=== PATIENT | female | born 1995 | race Hispanic/Latino ===

== ENCOUNTER 2024-02-11 11:10 | Emergency (ER) | payer SELFPAY ==
[2024-02-11 11:34] VITALS: BP 133/80; PULSE 96; RESP 16; TEMP 36.7; O2SAT 98
[2024-02-11] MEDS: ONDANSETRON INJ 4 MG/2 ML VIAL IV PUSH (12:08)
[2024-02-11] MEDS: methylPREDNISolone SOD SUCC 125 MG VIAL IV PUSH (12:09)
[2024-02-11] MEDS: diphenhydrAMINE HCl INJ 50 MG/ML VIAL IV PUSH (12:11)
[2024-02-11] MEDS: FAMOTIDINE 20 MG/2 ML VIAL IV PUSH (12:13)
--- NOTE | 2024-02-11 12:35 | ED.SKABFB ---
HPI - Skin/Abscess/Foreign Bdy General Chief complaint: Skin/Abscess/Foreign Body Stated complaint: rash, n/v Time Seen by Provider: 02/11/24 11:37 Source: patient Mode of arrival: ambulatory Limitations: no limitations and language barrier History of Present Illness HPI narrative: Patient is a 29-year-old female who presents the ED with report of a rash and itching. Patient is primarily Amharic-speaking. [employer] official court interpreter was utilized for assistance with translation. Patient reports she ate chicken yesterday that had been sitting out for a while. She began having diffuse hives, rash, itching afterwards. She noted having some difficulty breathing yesterday as well as nausea and vomiting, which persisted throughout the night. Patient denies any difficulty breathing today, but complains of persistent itching and nausea. She has not tried anything for her symptoms. Denies sensation of throat closing or swelling currently. Denies any other new medications, foods, detergents, lotions, soaps. Related Data Allergies Allergy/AdvReac Type Severity Reaction Status Date / Time Penicillins Allergy Unknown Verified 02/11/24 11:48 Review of Systems Review of Systems: All systems reviewed & are unremarkable except as noted in HPI. All systems reviewed & are unremarkable except as noted in HPI and below Exam Narrative: GENERAL: Mildly uncomfortable appearing, obese with BMI of 32.7, non-toxic, in no acute distress. HEAD: Normocephalic, atraumatic. ENT: No oral mucosal swelling. No swelling of lips or tongue. No drooling. No stridor or trismus. RESPIRATORY: Airway patent, respirations nonlabored. Clear to auscultation bilaterally, no rales, rhonchi, wheezing. No stridor or focal lung sounds. Maintaining secretions. CARDIOVASCULAR: Regular rate and rhythm without murmurs, rubs, or gallops. MUSCULOSKELETAL: Moves all extremities. No gross deformities. SKIN: Warm, dry, normal color. Diffuse urticaria/welts throughout trunk, back, extremities, upper neck, forehead. NEURO: A&O X3. Speech clear. Cranial nerves II-XII grossly intact. No ataxic movements. PSYCHIATRIC: Appropriate mood and affect. Normal interaction. Course Vital Signs Vital signs: Vital Signs Temperature 98.1 F 02/11/24 11:34 Pulse Rate 96 02/11/24 11:34 Respiratory Rate 16 02/11/24 11:34 Blood Pressure 133/80 02/11/24 11:34 Pulse Oximetry 98 02/11/24 11:34 Oxygen Delivery Room Air 02/11/24 11:34 Temperature 98.1 F 02/11/24 11:34 Pulse Rate 96 02/11/24 11:34 Respiratory Rate 16 02/11/24 11:34 Blood Pressure 133/80 02/11/24 11:34 Pulse Oximetry 98 02/11/24 11:34 Oxygen Delivery Room Air 02/11/24 11:34 MDM - Skin/Abscess/Foreign Bdy MDM Narrative Medical decision making narrative: patient presented to ED with allergic reaction, reportedly from eating left out chicken last night, also reporting nausea. Vitals are stable upon arrival. No signs of anaphylaxis or airway compromise at this time. No respiratory distress. Patient maintaining secretions. No stridor. Exam with diffuse urticaria to back /trunk/extremities. Patient given Solu-Medrol, Pepcid, Benadryl, zofran in the ED. On re-evaluation, symptoms are completely resolved. Patient resting comfortably. Urticaria is resolved. Patient reports itching is much better. Feel she is safe for discharge home at this time. Will discharge on Medrol Dosepak will also prescribe Zofran for home use. Given strict return precautions, discussed signs and symptoms of anaphylaxis. Patient in agreement with plan and feels comfortable w/ discharge home. Discharged in stable condition. Medical Records Attestation: I reviewed the patient's medical records. Discharge Plan Discharge Clinical Impression: Urticaria Allergic reaction Qualifiers: Encounter type: initial encounter Qualified Code(s): T78.40XA - Allergy, unspecified, initial encounter Patient Disposition: Home, Self-Care Condition: Stable Instructions: Antibiotic Form, Urticaria (ED), General Allergic Reaction (ED) Additional Instructions: Take steroids as prescribed over the next several days. Continue Benadryl as needed for itching. Continue Zofran as needed for further nausea. Stay well hydrated. Get plenty of rest. Follow-up with your primary care doctor for further evaluation. Return to the ED if you experience worsening or severe symptoms, difficulty breathing or swelling, sensation of throat swelling or closing, unable to keep down food or drink, or any other symptoms of concern. Prescriptions: New methylprednisolone [Medrol (Tee)] 4 mg tablets,dose pack See Rx Instructions PO .COMPLEX Qty: 21 0RF Rx Instructions: orally per package directions ondansetron 4 mg tablet,disintegrating 4 mg PO Q8H PRN (Reason: nausea and vomiting) Qty: 15 0RF Follow-up/Referrals: Kathryn,SHADI Conde [Primary Care Provider] - Time of Disposition: 14:00
[2024-02-11 14:23] VITALS: BP 128/76; PULSE 76; RESP 18; TEMP 36.8; O2SAT 98
== END 2024-02-11 14:24 | disposition home or self-care (01) ==
PROVIDERS: Emergency Provider Physician Assistant; PCP Physician Assistant
DX: L50.9 Urticaria, unspecified (principal)
CPT/HCPCS: 96374; 96375; 99284; J1200; J2405; J2919

== ENCOUNTER 2024-02-12 02:01 | Emergency (ER) | payer SELFPAY ==
[2024-02-12 02:38] VITALS: BP 134/74; PULSE 86; RESP 18; TEMP 37; O2SAT 100
--- NOTE | 2024-02-12 02:43 | ED_ITS ---
HPI - Skin/Abscess/Foreign Bdy General Chief complaint: Allergic Reaction Stated complaint: rash Time Seen by Provider: 02/12/24 02:33 History of Present Illness HPI narrative: 29-year-old [place]-speaking patient presenting to the emergency depart with a chief complaint of rash, difficulty breathing, lip swelling. Patient is primarily [place] Korean-speaking only and we have presently no access to interpretive services secondary to ID complication. Translation was conducted through [employer] staff who is fluent in [place]. Patient states that she was seen about 12 hours prior with a suspected allergic reaction to something she ate. She had diffuse hives and urticaria at that time. Was treated with a combination medications including Solu-Medrol, Pepcid, Benadryl and sent home after relief of her symptoms. She went home in her normal state of health and then had a recurrence of her rash and development of shortness of breath and lip swelling. This occurred just prior to arrival. Was sent home with a Medrol Dosepak and Zofran earlier today. She denies any abdominal pain, nausea or vomiting presently. No fever or chills. No new detergents, animals, exposures in the household. No new foods other than the cheek and she ate earlier today which she feels was . Related Data Allergies Allergy/AdvReac Type Severity Reaction Status Date / Time Penicillins Allergy Unknown Verified 02/12/24 02:01 Review of Systems Review of Systems: As reviewed above in HPI Exam Narrative: GENERAL: [Well-appearing, well-nourished, and in no acute distress.] HEAD: [Normocephalic, atraumatic.] EYES: [PERRLA and EOMI.] ENT: Nares clear, no rhinorrhea or epistaxis. Mucous membranes moist. Minor anterior lip swelling on the top lip, no uvular edema, no posterior pharyngeal edema, no brawny neck edema. Full range of motion of the jaw, no trismus NECK: Supple. CHEST: Some scattered wheezing appreciated in the bilateral bases but good air entry. No rhonchi. No accessory muscle use HEART: [Regular rate and rhythm]. No murmur heard. [Normal peripheral pulses.] ABDOMEN: [Soft, nondistended], [nontender], [No rigidity or guarding] EXTREMITIES: Normal range of motion. [No edema.] SKIN: Diffuse urticaria noted throughout the extremities and back, mostly localized to the right proximal arm, inner thighs bilaterally, neck and hairline NEURO: [No focal deficits]. Alert and oriented [x3.] PSYCH: [Normal mood and affect.] Course Vital Signs Vital signs: Vital Signs Temperature 37.0 C 02/12/24 02:38 Pulse Rate 86 02/12/24 02:38 Respiratory Rate 18 02/12/24 02:38 Blood Pressure 134/74 02/12/24 02:38 Pulse Oximetry 100 02/12/24 02:38 Oxygen Delivery Room Air 02/12/24 02:38 Temperature 37.0 C 02/12/24 02:38 Pulse Rate 88 02/12/24 05:12 Respiratory Rate 18 02/12/24 05:12 Blood Pressure 129/71 02/12/24 05:12 Pulse Oximetry 100 02/12/24 05:12 Oxygen Delivery Room Air 02/12/24 04:36 MDM - Skin/Abscess/Foreign Bdy MDM Narrative Medical decision making narrative: 29-year-old female presenting for repeat evaluation after being treated for an allergic reaction about 14 hours prior in the same emergency department. During previous assessment and treatment she was given Solu-Medrol Pepcid Benadryl and Zofran with resolution of her symptoms. She was discharged home in good health. She returns present with repeat rash and new symptoms such as difficulty breathing and lip swelling. Denies any repeat exposure to the potential allergen from earlier. No new detergents or pets or any other potential exposures according to the patient with the family present at bedside. She does not appear in any distress and has normal vital signs without any hypoxia, fever or blood pressure concerns. No tachycardia. She does have some scattered wheezing and does have urticaria in her extremities, neck and hairline. Minor anterior lip swelling but no posterior oropharyngeal swelling or tongue base swelling. Patient will be treated for anaphylaxis and potential rebound allergic reaction. Or will require epinephrine injection at this time given multi organ involvement. She was given intramuscular epinephrine and IV was established with repeat dose of Solu-Medrol Pepcid Benadryl and a fluid bolus. Laboratory studies were obtained. Patient will be observed for several hours here in the emergency department and final disposition will be made based on patient's response to treatment. Patient was re-evaluated frequently here in the emergency department. She had resolution of her lip swelling and difficulty in breathing and was no longer wheezing. She still had urticarial rash so she was given additional diphenhydramine as well as hydrocortisone cream which resolved this. She was observed for numerous hours here in the emergency depart with any recurrence for symptoms. I discussed this with the family members under plan of care going forward that she will be prescribed Pepcid and Benadryl as well as hydrocortisone cream for the continued rash. If she has any recurrence of the difficulty in breathing or lip swelling that she should return to the ER but given that she has not had any deterioration or return if her symptoms I believe is stable for discharge home and family was agreeable at this time. Medical Records Attestation: I reviewed the patient's medical records. Lab Data Attestation: I reviewed the patient's lab results. Lab results narrative: Leukocytosis of 14.2 but she has received 2 doses of steroids this is likely reactive and not indicative of acute infectious process. No anemia. Normal electrolytes normal hepatic and renal function panel. Negative test. 02/12/24 03:02 02/12/24 03:02 Labs: Lab Results 02/12/24 Range/Units 03:02 WBC 14.2 H (4.5-10.0) K/mm3 RBC 4.48 (4.2-5.4) M/mm3 Hgb 11.7 L (12.0-15.0) g/dL Hct 36.0 L (37.0-47.0) % MCV 80.4 (80-100) fl MCH 26.1 (26-34) pg MCHC 32.5 (32-36) g/dl RDW 14.4 (11.5-14.5) % Plt Count 404 H (150-375) k/mm3 MPV 10.0 (7.4-10.4) fl Immature Gran % (Auto) 0.6 H (0-0.5) % Neut % (Auto) 90.6 H (45.5-73.1) % Lymph % (Auto) 7.2 L (18.3-44.2) % Weber % (Auto) 1.5 L (2.6-8.5) % Eos % (Auto) 0.0 (0-4.4) % Baso % (Auto) 0.1 L (0.2-1.2) % Lymph # (Auto) 1.03 (0.9-3.2) K/mm3 Weber # (Auto) 0.2 (0.1-0.6) K/mm3 Eos # (Auto) 0.0 (0-0.3) K/mm3 Baso # (Auto) 0.0 (0.0-0.1) K/mm3 Abs Immat Gran (auto) 0.09 H (0.00-0.031) K/mm3 Absolute Neuts (auto) 12.9 H (1.3-6.7) K/mm3 Absolute Nucleated RBC 0.000 (0.0-0.012) K/mm3 Nucleated RBC % 0.0 (0.0-0.2) % Platelet Estimate Increased (Adequate) Hypochromasia 1+ Anisocytosis 1+ Schistocytes None seen Sodium 139 (137-145) mmol/L Potassium 3.9 (3.4-5.0) mmol/L Chloride 104 (98-107) mmol/L Carbon Dioxide 24 (22-30) mmol/L Anion Gap 11 (4-12) mmol/L BUN 6 L (7-17) mg/dL Creatinine 0.50 L (0.7-1.0) mg/dL Estim Creat Clear Calc 130 ml/min Estimated GFR > 60 (59 - ) Glucose 171 H (65-110) mg/dL Calcium 9.8 (8.4-10.2) mg/dL Total Bilirubin 0.5 (0.2-1.3) mg/dL AST 26 (14-36) U/L ALT 26 (6-35) U/L Alkaline Phosphatase 83 (38-126) U/L Total Protein 9.0 H (6.3-8.2) g/dL Albumin 4.8 (3.5-5.1) g/dL Beta HCG, Quant < 2.39 mIU/ML Discharge Plan Discharge Clinical Impression: Anaphylaxis, Allergic reaction, Urticaria Patient Disposition: Home, Self-Care Condition: Stable Instructions: Antibiotic Form, Epinephrine (By injection), Urticaria (ED), Anaphylaxis (ED), Allergies (ED) Additional Instructions: Return at any point with any new or worsening concerns. We have prescribed additional medications to take in addition to your previous prescribed medications earlier this morning. Will also prescribe you an EpiPen to take if you have any recurrence of difficulty in breathing, wheezing or lip swelling. Patient Language: [place] Prescriptions: New diphenhydramine HCl [Allergy (diphenhydramine)] 25 mg tablet 25 mg PO TID PRN (Reason: allergic reaction) Qty: 30 0RF hydrocortisone 2.5 % cream 1 applic topical BID PRN (Reason: allergic reaction) Qty: 20 0RF epinephrine 0.1 mg/0.1 mL auto-injector 0.1 mg IM ONCE Qty: 2 0RF No Action methylprednisolone [Medrol (Tee)] 4 mg tablets,dose pack See Rx Instructions PO .COMPLEX Qty: 21 0RF Rx Instructions: orally per package directions ondansetron 4 mg tablet,disintegrating 4 mg PO Q8H PRN (Reason: nausea and vomiting) Qty: 15 0RF Follow-up/Referrals: Kathryn,SHADI Conde [Primary Care Provider] - Time of Disposition: 06:37
[2024-02-12] MEDS: FAMOTIDINE 20 MG/2 ML VIAL IV PUSH (03:01)
[2024-02-12] MEDS: methylPREDNISolone SOD SUCC 125 MG VIAL IV PUSH (03:01)
[2024-02-12] MEDS: LACTATED RINGERS 1,000 ML 999 ML IV CONT (03:01)
[2024-02-12] MEDS: diphenhydrAMINE HCl INJ 50 MG/ML VIAL IV PUSH (03:01)
[2024-02-12] MEDS: EPINEPHrine HCL INJ 1 MG/ML AMPUL 0.3 MG IM (03:01)
[2024-02-12 03:08] LABS: Basophils Percent Auto 0.1 % (0.2-1.2); Hemoglobin 11.7 g/dL (12.0-15.0); Immature Granulocyte Absolute 0.09 K/mm3 (0.00-0.031); Immature Granulocyte Percent A 0.6 % (0-0.5); Lymphocytes Absolute Auto 1.03 K/mm3 (0.9-3.2); Lymphocytes Percent Auto 7.2 % (18.3-44.2); Mean Corpuscular HGB Conc 32.5 g/dl (32-36); Mean Corpuscular Hemoglobin 26.1 pg (26-34); Mean Corpuscular Volume 80.4 fl (80-100); Monocytes Absolute Auto 0.2 K/mm3 (0.1-0.6); Monocytes Percent Auto 1.5 % (2.6-8.5); Neutrophils Absolute Auto 12.9 K/mm3 (1.3-6.7); Neutrophils Percent Auto 90.6 % (45.5-73.1); Platelet Count Result 404 k/mm3 (150-375); Red Blood Count 4.48 M/mm3 (4.2-5.4); Red Cell Distribution Width 14.4 % (11.5-14.5); White Blood Count 14.2 K/mm3 (4.5-10.0)
[2024-02-12 03:17] LABS: Alanine Aminotransferase 26 U/L (6-35); Albumin Level 4.8 g/dL (3.5-5.1); Alkaline Phosphatase 83 U/L (38-126); Anion Gap 11 mmol/L (4-12); Aspartate Amino Transferase 26 U/L (14-36); Bilirubin,Total 0.5 mg/dL (0.2-1.3); Blood Urea Nitrogen 6 mg/dL (7-17); Calcium 9.8 mg/dL (8.4-10.2); Carbon Dioxide 24 mmol/L (22-30); Chloride 104 mmol/L (98-107); Estimated CRCL calculation 130 ml/min; Estimated Glomerular Filt Rate > 60; Glucose 171 mg/dL (65-110); Potassium 3.9 mmol/L (3.4-5.0); Sodium 139 mmol/L (137-145)
[2024-02-12 03:28] LABS: Anisocytosis 1+; Hypochromasia 1+; Platelet Estimate Increased (Adequate); Schistocytes None Seen
[2024-02-12 03:33] LABS: Beta HCG Quantitative < 2.39 mIU/ML
[2024-02-12 04:36] VITALS: O2SAT 99
[2024-02-12 05:12] VITALS: BP 129/71; PULSE 88; RESP 18; O2SAT 100
[2024-02-12] MEDS: diphenhydrAMINE HCl INJ 50 MG/ML VIAL 25 MG IV PUSH (05:58)
[2024-02-12] MEDS: HYDROCORTISONE 2.5% CREAM 30 GM TUBE 1 APPLIC TOPICAL (05:59)
[2024-02-12 06:44] VITALS: BP 117/83; PULSE 73; RESP 18; O2SAT 99
== END 2024-02-12 06:46 | disposition home or self-care (01) ==
PROVIDERS: Emergency Provider Student in an Organized Health Care Education/Training Program; PCP Physician Assistant
DX: T78.2XXA Anaphylactic shock, unspecified, initial encounter (principal); T78.40XA Allergy, unspecified, initial encounter; L50.9 Urticaria, unspecified
CPT/HCPCS: 36415; 80053; 84702; 85025; 96361; 96372; 96374; 96375; 99284; A9270; J0171; J1200; J2919; J7120